=== PATIENT | female | born 1950 ===

== ENCOUNTER 2022-03-22 17:06 | Observation (INO) | payer OTHER ==
[~2022-03-22] VITALS: Ht 160 cm; Wt 79.4 kg
[2022-03-22] MEDS ORDERED: FERSU300 PO (21:03)
[2022-03-22] MEDS ORDERED: Prozac40 MG PO (21:04)
[2022-03-22] MEDS ORDERED: LOVA40 PO (21:17)
[2022-03-22] MEDS ORDERED: OMEP20ER PO (21:17)
[2022-03-22] MEDS ORDERED: ONDA4ODT MM (21:18)
[2022-03-22 21:42] LABS: Hematocrit 27.6 % (33.0-51.0); Hemoglobin 7.9 g/dL (11.5-16.0)
[2022-03-23 01:50] LABS: Hematocrit 27.7 % (33.0-51.0)
[2022-03-23 02:30] LABS: Albumin, Blood 3.2 g/dL (3.4-5.0); Albumin/Globulin Ratio 0.9 (0.8-1.8); Bilirubin, Total 0.3 mg/dL (0.1-1.0); Bun/Creatinine Ratio 30.6 (12.0-20.0); Creatinine, Blood 1.21 mg/dL (0.40-1.00); Globulin, Blood 3.6 g/dL (2.2-4.0); Potassium, Blood 3.9 mmol/L (3.5-5.5); Total Protein, Blood 6.8 g/dL (6.4-8.2)
--- NOTE | 2022-03-23 05:18 | NUR ---
PT RECIEVED 2 UNITS PRBCS, THE 2ND OF WHICH WAS INFUSING ON ARRIVAL BY EMS, VSS, CURRENTLY NS INFUSING AT 75 ML/HR, MOST RECENT HGB WAS 8.0, NSR ON TELE, RA WITH SATS >95, PT UP WITH SBA TO BATHROOM, ACID CRANE OPERATOR REPORTS EVY BLOOD IN STOOL, HOWEVER, THIS WAS INADVERTENTLY FLUSHED BEFORE IT WAS VEIWED BY RN, IT WAS DESCRIBED "SOME OR WELL, A GOOD AMOUNT", PT REPORTED 2 "DIZZY SPELLS" ALTHOUGH THESE WERE NOT MENTIONED UNTIL AFTER THEY RESOLVED, BSC PLACED IN ROOM AND PT AND ACID CRANE OPERATOR ADVISED PT TO DANGLE BEFORE TRANSFER AND ONLY WITH STAFF ASSIST
[2022-03-23 06:17] LABS: Mean Corpuscular HGB 18.6 pg (26.0-34.0); Mean Corpuscular HGB Conc 28.6 g/dL (31.5-36.5); Mean Corpuscular Volume 65 fL (80-100); Mean Platelet Volume 8.9 fL (9.1-12.4); Platelet Count 379 K/mm3 (150-400); RDW Coefficient Variation 28.2 % (11.7-14.2); RDW Standard Deviation 63.2 fL (35.1-46.3); White Blood Cell Count 9.53 K/mm3 (4.00-11.30)
[2022-03-23 09:59] LABS: Percent Saturation 3.3 % (15.0-50.0)
[2022-03-23 11:34] LABS: Hematocrit 28.4 % (33.0-51.0)
--- NOTE | 2022-03-23 18:49 | NUR ---
SHIFT SUMMARY PT A/O X4; PLEASANT AND COOPERATIVE WITH CARE. PT IS TE-MOAK AND HAS HEARING AIDES. SHE C/O ISSUES WITH SWALLOWING/EATING DUE TO HER ESOPHAGEAL STRICTURES. SHE IS ABLE TO TOLERATE FULL LIQUIDS BUT SWALLOWING PILLS IS DIFFICULT FOR HER. PT TO HAVE AN UPPER SCOPE TOMORROW. NO BM'S THIS SHIFT. PT C/O SOME DIZZINESS WHEN WORKING WITH PHYSICAL THERAPY BUT HAS NOT BEEN DIZZY SINCE. VSS.
[2022-03-23 20:28] LABS: Hematocrit 28.2 % (33.0-51.0); Hemoglobin 7.8 g/dL (11.5-16.0)
[2022-03-24 03:03] LABS: Hematocrit 24.3 % (33.0-51.0); Hemoglobin 7.2 g/dL (11.5-16.0)
[2022-03-24 03:18] LABS: Bun/Creatinine Ratio 28.6 (12.0-20.0); Calcium, Blood 8.7 mg/dL (8.5-10.1); Creatinine, Blood 0.84 mg/dL (0.40-1.00); Potassium, Blood 3.8 mmol/L (3.5-5.5)
--- NOTE | 2022-03-24 06:27 | NUR ---
MAUDE SUMMARY PT IS A&OX4, IND IN THE ROOM, HAS HER STAYING AT THE BEDSIDE, AND SHE CALLS APPROPRIATELY. PT WAS MADE NPO AT 0000 FOR AN UPPER SCOPE TODAY. DURING THE NIGHT HER RIGHT AC IV BECAME TOO PAINFUL AND HAD TO HAVE IT REMOVED. TWO OTHER NURSES ATTEMPTED TO GET ANOTHER IV. EVENTUALLY A POWERGLIDE WAS PALCED IN HER RIGHT UPPER ARM. BED IS IN LOW, CALL LIGHT IS IN REACH, AND NON SLIP SOCKS ARE IN PLACE. WILL CONTINUE TO MONITOR UNTIL SHIFT REPORT IS GIVEN TO Jacy SARGENT ONCOSWALDO SHIFT RN. SEE NOTES FOR ANY UPDATES.
[2022-03-24 08:22] LABS: Hematocrit 26.2 % (33.0-51.0); Hemoglobin 7.4 g/dL (11.5-16.0)
--- NOTE | 2022-03-24 15:04 | NUR ---
03/24/[address] SCOTT; SEE ANESTHESIA RECORDS.
--- NOTE | 2022-03-24 18:47 | NUR ---
SHIFT SUMMARY PT HAS BEEN SLEEPING OFF AND ON THROUGHOUT THE DAY. ALL VITAL SIGNS HAVE REMAINED STABLE. PT HAS CALLED APPROPRIATELY FOR ASSISTANCE AND BEEN COOPERATIVE WITH CARE. PT HAS DENIED ANY C/O PAIN OR DISCOMFORT. PT HAS BEEN UP TO THE RESTROOM BY STAND-BY ASSIST MULTIPLE TIMES. PT'S SPOUSE WAS AT THE BEDSIDE FOR MOST OF THE DAY AND ASSISTED STAFF WITH ANSWERING QUESTIONS. THERE WERE NO ACUTE CHANGES IN PT'S CONDITION.
--- NOTE | 2022-03-24 18:47 | NUR ---
PT ARRIVED TO ROOM 341 VIA W/C FROM U AT 1730. ABLE TO TRANSFER SELF IN TO BED AND SETTLED IN. HAS GOTTEN A SHOWER SINCE THEN. 2 RN SKIN ASSESSMENT IS NEGATIVE FOR ANY ISSUES. JOVI KURTZ WAS 2ND.
--- NOTE | 2022-03-25 06:34 | NUR ---
PATIENT ALERT AND ORIENTED, ROOM AIR, CAHUILLA, NO TELE, INDEPENDENT, CLEAR LIQUID DIET, BECKY POWERGLIDE, POSSIBLE COLONOSCOPY TODAY, NO EVENTS OVERNIGHT
--- NOTE | 2022-03-25 17:34 | NUR ---
SHIFT SUMMARY PT AWAKE DURING SHIFT REPORT, RESTING QUIETLY. HEARING AID REMOVED FROM ROAD DRIVER SO PT COULD PARTICIPATE IN REPORT. ADMITTED FOR GIB; EGD DONE YESTERDAY, NEG. PT TO HAVE ENDOSCOPE POSSIBLY IN AM. BOWEL PREP GIVEN PER EMAR THRU OUT THE DAY. DR MADISON IN TO SEE PT THIS AFTERNOON, DICUSSING PLAN OF CARE. DR PALOMO PLACED ORDERS FOR MORE BOWEL PREP THIS EVENING AND AM; SEE EMAR. PT'S TO THIS AFTERNOON TO VISIT. PT TOLERATING CL DIET TODAY. NO C/O. UP WITH SBA TO BTHRM. DENIED FURTHER NEEDS AT THIS TIME. CALL LT IN REACH.
--- NOTE | 2022-03-26 05:31 | NUR ---
SHIFT SUMMARY ADMITTED FOR GI BLEED. N/V/D AND SYNCOPE. DNR CODE. PLAN IS FOR COLONOSCOPY. BOWEL PREP DOSE ONE GIVEN ORDERED. POWERGLIDE IN RUE FLUSHES WELL, DID NOT DRAW THIS MORNING. DR. JASSO IS GI CONSULT. A&O X4, INDEPENDENT IN ROOM. 9 YEAR HX OF DYSPHAGIA, WORSE IN PAST YEAR CAUSING WT. LOSS. ESOPH DILATIONS PERFORMED. UPPER ENDO PERFORMED ON PREVIOUS SHIFT. HX OF PULMONARY FIBROSIS. LIVES WITH VERY SUPPORTIVE, BUT DISABLED SPOUSE.
[2022-03-26 05:54] LABS: BASOPHILS ABSOLUTE AUTO 0.03 K/mm3 (0.00-0.23); BASOPHILS PERCENT AUTO 0 % (0-2); EOSINOPHILS ABSOLUTE AUTO 0.03 K/mm3 (0.00-0.68); EOSINOPHILS PERCENT AUTO 0 % (0-6); Hematocrit 28.4 % (33.0-51.0); Hemoglobin 8.1 g/dL (11.5-16.0); IMMATURE GRAN ABSOLUTE AUTO 0.04 K/mm3 (0.00-0.10); IMMATURE GRAN PERCENT AUTO 1 % (0-1); LYMPHOCYTES ABSOLUTE AUTO 1.41 K/mm3 (0.84-5.20); LYMPHOCYTES PERCENT AUTO 17 % (21-46); MONOCYTES ABSOLUTE AUTO 0.95 K/mm3 (0.16-1.47); MONOCYTES PERCENT AUTO 11 % (4-13); Mean Corpuscular HGB 18.8 pg (26.0-34.0); Mean Corpuscular HGB Conc 28.5 g/dL (31.5-36.5); Mean Corpuscular Volume 66 fL (80-100); Mean Platelet Volume 9.6 fL (9.1-12.4); NEUTROPHILS ABSOLUTE AUTO 6.04 K/mm3 (1.96-9.15); NEUTROPHILS PERCENT AUTO 71 % (41-73); Platelet Count 379 K/mm3 (150-400); RDW Standard Deviation 63.8 fL (35.1-46.3)
[2022-03-26 06:26] LABS: Bun/Creatinine Ratio 16.8 (12.0-20.0); Calcium, Blood 8.9 mg/dL (8.5-10.1); Creatinine, Blood 1.01 mg/dL (0.40-1.00); Potassium, Blood 3.4 mmol/L (3.5-5.5)
--- NOTE | 2022-03-26 16:07 | NUR ---
03/26/22 160[address] Sivak[address] STEPHENS
--- NOTE | 2022-03-26 16:26 | NUR ---
assumed care of pt, she is currently in day lizzette having a scope.
--- NOTE | 2022-03-26 16:59 | NUR ---
pt returned to room awake, spouce in room, she is asking to go home, as they didn't find anything, jose eduardo huynh, notified Dr. Mathew, he will write orders. call light in reach.
[2022-03-26] MEDS ORDERED: ATOR10 PO (17:46)
--- NOTE | 2022-03-26 18:27 | NUR ---
Pt has been discharged to home, new medication was faxed to [facility], power glide removed intact, new ice pack given for sore arm, went over all instructions to f/u and meds with her she verbalized understanding. left via wheelchair with hi teacher with all her belongings.
== END 2022-03-26 18:36 | disposition home or self-care (01) ==
LOC: PCU 17:06 → MEDS 19:50 → PCU 03-23 11:03 → MEDS 03-24 17:24
PROVIDERS: Internal Medicine; Nurse Practitioner Acute Care; Specialist; Student in an Organized Health Care Education/Training Program; ADMIT Internal Medicine
PROC: 0DJ08ZZ Inspection of Upper Intestinal Tract, Via Natural or Artificial Opening Endoscopic (ICD-10-PCS; principal; 2022-03-24 15:00)
DX: D50.9 Iron deficiency anemia, unspecified (principal); K92.2 Gastrointestinal hemorrhage, unspecified; K58.9 Irritable bowel syndrome, unspecified; K22.2 Esophageal obstruction; I10 Essential (primary) hypertension; J84.10 Pulmonary fibrosis, unspecified; E78.5 Hyperlipidemia, unspecified; K21.9 Gastro-esophageal reflux disease without esophagitis; Z80.0 Family history of malignant neoplasm of digestive organs; G47.33 Obstructive sleep apnea (adult) (pediatric); Z88.5 Allergy status to narcotic agent
CPT/HCPCS: 36415; 80048; 80053; 82728; 83540; 83550; 85014; 85018; 85025; 85027; 88305; 88342; 96374; 96375; 97110; 97116; 97162; 97530; A9270; C1751; C9113; G0378; J2001; J2405; J2704; J2916; J7030; J7120